=== PATIENT | female | born 2000 | race Caucasian/White ===

== ENCOUNTER 2022-05-12 03:59 | Emergency (ER) | payer MEDICAID ==
[~2022-05-12] VITALS: Ht 170.2 cm; Wt 86.4 kg
[2022-05-12] MEDS ORDERED: IBUPROFEN 600 MG TAB PO ONE (08:30)
[2022-05-12] MEDS ORDERED: cefTRIAXone SOD 1,000 MG VL IM ONE (08:30)
[2022-05-12] MEDS ORDERED: TETANUS-DIPTH-ACEL PERTUSSIS 0.5ML SYR Tdap IM ONE (08:30)
[2022-05-12] MEDS ORDERED: AMOX-277 PO (08:36)
[2022-05-12] MEDS ORDERED: ACET1CAP14 PO (08:36)
[2022-05-12 09:20] VITALS: BP 131/75
== END 2022-05-12 09:30 | disposition home or self-care (01) ==
LOC: ER 03:59
DX: S71.151A Open bite, right thigh, initial encounter (principal); W54.0XXA Bitten by dog, initial encounter; Y93.89 Activity, other specified; Y92.89 Other specified places as the place of occurrence of the external cause; Y99.8 Other external cause status
CPT/HCPCS: 90471; 90715; 96372; 99284; J0696